=== PATIENT | male | born 1970 | race Hispanic/Latino ===

== ENCOUNTER 2020-02-12 10:29 | Emergency (ER) | payer BC ==
[~2020-02-12 10:29] MED LIST: SITA1TAB6 PO; VALS320T2 PO
[2020-02-12] MEDS ORDERED: LIDOCAINE HCL 2% VISCOUS 15 ML UDCUP ONE (12:13)
[2020-02-12] MEDS ORDERED: IBUPROFEN 100 MG/5 ML SUSP UDCUP ONE (12:13)
[2020-02-12] MEDS ORDERED: DEXAMETHASONE SOD PHOSPHATE 10MG/ML 1ML VIAL ONE (12:13)
== END 2020-02-12 12:22 | disposition home or self-care (01) ==
LOC: EDH 10:29
DX: J02.0 Streptococcal pharyngitis (principal); Z20.828 Contact with and (suspected) exposure to other viral communicable diseases
CPT/HCPCS: 87880; 96374; 99284; J1100; U0003

== ENCOUNTER 2025-03-04 13:07 | Inpatient (IN) | payer BC ==
[~2025-03-04] VITALS: Ht 167.6 cm; Wt 124.4 kg
--- NOTE | 2025-03-04 13:10 | NUR ---
PATIENT IN ROOM
--- NOTE | 2025-03-04 13:37 | ERN ---
ED Note History of Present Illness Stated Complaint: CHEST PAIN Chief Complaint: Chest Pain Time Seen by MD: 13:10 Dictation: IS A 54-YEAR-OLD MALE STATES HE WAS OUT WITH HIS SHOPPING AT MARKED DAYS WHEN HE HAD AN ONSET OF SUBSTERNAL PRESSURE THAT RADIATED TO HIS UPPER BACK THAT LASTED 5 MINUTES. HE STATES IT ONLY RESOLVED APPROXIMATELY5 MINUTES BEFORE ARRIVING TO THE HOSPITAL. HE STATES IN THE LAST SEVERAL WEEKS HE HAS HAD A TINGLING PAIN TO HIS LEFT CHEST, NONRADIATING. STATES HE DOES NOT HAVE A CARDIAC HISTORY HOWEVER HE IS OBESE, DIABETIC WITH HYPERTENSION HIGH CHOLESTEROL. HE DID NOT TALK ABOUT THIS CHEST TO HIS DOCTOR. DENIES ANY HI STORY OF STENTS, HEART CATHETERIZATION OR FORENSIC ACCOUNTANT'S. Allergies: Coded Allergies: No Known Drug Allergies (Verified Allergy, Unknown, 02/19/15) Home Meds Reported Medications Valsartan (Diovan) 320 Mg Tablet, 320 MG PO DAILY, TAB 02/19/15 Sitagliptin Phos/Metformin HCl (Janumet 50-1,000 mg Tablet) 1 Each Tablet, 1 EACH PO BID, TAB 02/19/15 Past Medical History Past Medical History: Diabetes-Type II, Hypertension Surgical History: Other RN Note Reviewed/Agreed w/PFSH: Yes Review of System Dictation CONSTITUTIONAL: NEGATIVE EXCEPT FOR HPI HEAD/FACE: NEGATIVE EXCEPT FOR HPI EENT: NEGATIVE EXCEPT FOR HPI RESPIRATORY: NEGATIVE EXCEPT FOR HPI CHEST PRESSURE THAT RADIATES TO DIFFUSE THORACIC BACK GASTROINTESTINAL/ABDOMINAL: NEGATIVE EXCEPT FOR HPI GENITOURINARY: NEGATIVE EXCEPT FOR HPI MUSCULOSKELETAL: NEGATIVE EXCEPT FOR HPI INTEGUMENTARY: NEGATIVE EXCEPT FOR HPI NEUROLOGICAL/PSYCH: NEGATIVE EXCEPT FOR HPI HEMATOLOGIC/LYMPHATIC: NEGATIVE EXCEPT FOR HPI ALL SYSTEMS NEGATIVE, EXCEPT NOTED ABOVE. 13 POINT REVIEW OF SYSTEMS ASSESSED AND ALL NEGATIVE EXCEPT FOR ABOVE. Initial Vital Sign VS Vital Signs Date Time Temp Pulse Resp B/P (MAP) Pulse Ox O2 Delivery O2 Flow Rate FiO2 03/04/25 13:08 98.4 56 20 138/93 98 Room Air 0 Physical Exam Dictation NORMAL EXAM VITAL SIGNS REVIEWED GENERAL APPEARANCE: ALERT, ORIENTED X 3, NO ACUTE DISTRESS, WELL DEVELOPED, NOURISHED. NO PAIN AT THIS TIME PATIENT IS OBESE HEAD AND FACE: NON-TRAUMATIC. EYES: PERRL, PINK CONJUNCTIVAS, EYELID NO TRAUMA, ANTERIOR CHAMBER WITH ARCUS SENILIS. EARS: PINNAS INTACT AND NO SIGNS OF TRAUMA OR ERYTHEMA EAR CANALS CLEAR AND NO DISCHARGE TM NO ERYTHEMA NOSE: NO DISCHARGE, NO BLEEDING. OROPHARYNX: MOUTH NORMAL, TONGUE PINK, PHARYNX CLEAR,NO ERYTHEMA, TONSILS NO EXUDATES, NO ABSCESSES NOTED, MUCOUS MEMBRANE MOIST NECK: SUPPLE, NON-TENDER, NO THYROMEGALY, NO MASSES, NO JVD, NO BRUITS BREAST:DEFERRED CHEST:NO TENDERNESS, NO CREPITUS, NO PARADOXICAL MOVEMENT, NO RETRACTIONS LUNGS:CLEAR, WELL-VENTILATED, SYMMETRIC, NO RALES, NO WHEEZING, NO RHONCHI, NO STRIDOR, GOOD BREATH SOUNDS BILATERALLY HEART: REGULAR RATE, REGULAR RHYTHM, NO MURMUR, NO GALLOPS VASCULAR: NO PERIPHERAL EDEMA, ABDOMEN: SOFT, POSITIVE BOWEL SOUNDS, NONDISTENDED, NO GUARDING, NONTENDER, NO REBOUND, NO MASSES NO HEPATOMEGALY, NO SPLENOMEGALY, NO DORAN'S SIGN, NO HERNIAS. RECTAL: DEFERRED GENITAL: DEFERRED NEUROLOGICAL: NORMAL SPEECH, MOTOR FUNCTION INTACT, SENSORY FUNCTION INTACT MUSCULOSKELETAL: NECK NONTENDER, FULL RANGE OF MOTION, BACK NONTENDER, FULL RANGE OF MOTION, EXTREMITIES: NONTENDER, FULL RANGE OF MOTION SKIN: COLOR PINK, DRY, NO TURGOR, NO RASH, NO LACERATIONS, NO ABRASIONS, NO CONTUSIONS. LYMPHATIC: DEFERRED Results (Laboratory/Radiology) Laboratory/Radiology Laboratory Tests Test 03/04/25 13:56 White Blood Count 5.6 K/uL (4.8-10.8) Red Blood Count 4.84 MIL/uL (4.50-6.20) Hemoglobin 13.4 g/dL (14.0-18.0) L Hematocrit 42.5 % (42-54) Mean Corpuscular Volume 87.8 fL (79-99) Mean Corpuscular Hemoglobin 27.7 pg (27.0-33.0) Mean Corpuscular Hemoglobin Concent 31.5 g/dL (32.0-36.0) L Red Cell Distribution Width 14.2 % (11.0-15.5) Platelet Count 234 K/uL (130-400) Mean Platelet Volume 9.3 fL (7.5-10.5) Immature Granulocyte % (Auto) 0.2 % (0-1) Neutrophils (%) (Auto) 58.5 % (40.0-77.0) Lymphocytes (%) (Auto) 31.1 % (21.0-51.0) Monocytes (%) (Auto) 7.9 % (3.0-13.0) Eosinophils (%) (Auto) 1.8 % (0.0-8.0) Basophils (%) (Auto) 0.5 % (0.0-5.0) Neutrophils # (Auto) 3.3 K/uL (1.8-7.7) Lymphocytes # (Auto) 1.7 K/uL (1.0-4.8) Monocytes # (Auto) 0.4 K/uL (0.1-1.0) Eosinophils # (Auto) 0.10 K/uL (0.00-0.70) Basophils # (Auto) 0.03 K/uL (0.00-0.20) Absolute Immature Granulocyte (auto 0.01 K/uL (0-1) Nucleated Red Blood Cells 0.0 % (0.0-0.19) Sodium Level 138 mmol/L (136-145) Potassium Level 4.6 mmol/L (3.5-5.1) Chloride Level 103 mmol/L (101-111) Carbon Dioxide Level 29 mmol/L (21-32) Blood Urea Nitrogen 10 mg/dL (7-18) Creatinine 0.8 mg/dL (0.5-1.3) Glomerular Filtration Rate Calc 106 mL/min (>90) Random Glucose 109 mg/dL (70-105) H Total Calcium 8.5 mg/dL (8.5-10.1) Magnesium Level 2.00 mg/dL (1.80-2.40) Troponin I High Sensitivity 6 ng/L (4-75) 1355/CHEST X-RAY NEGATIVE Labs Reviewed?: Yes EKG Comment: 1144/EKG SINUS RHYTHM/HEART RATE 57/LEFT ATRIAL ENLARGEMENT. PATIENT HAS NONSPECIFIC CHANGES IN THE ANTEROSEPTAL LEADS WITH A LEFT ANTERIOR FASCICULAR BLOCK NO PRIOR EKGS TO COMPARE IN REVIEW OF MEDICAL RECORDS ED Course ED Course Orders Procedure Category Date Status Time 12 Lead Ekg Tracing- EKG 03/04/25 Logged Technical 13:11 Cbc With Differential LAB 03/04/25 Complete 13:32 Chest 1vw RAD 03/04/25 Resulted 13:32 12 Lead Ekg Tracing- EKG 03/04/25 Logged Technical 13:32 Magnesium LAB 03/04/25 Complete 13:32 Troponin I High LAB 03/04/25 Complete Sensitivity 13:32 Aspirin 325mg Tab PHA 03/04/25 Complete (Aspirin 325mg Tab) 14:00 Urinalysis Profile LAB 03/04/25 Logged 13:32 Basic Metabolic Panel LAB 03/04/25 Complete 13:32 Current Medications Medications (Trade) Dose Ordered Sig/Bhargav Route PRN Reason Start Time Stop Time Status Last Admin Dose Admin Aspirin (Aspirin 325mg Tab) 325 mg ONCE ONCE PO 03/04/25 14:00 03/04/25 14:01 DC 03/04/25 13:51 Vital Signs Date Time Temp Pulse Resp B/P (MAP) Pulse Ox O2 Delivery O2 Flow Rate FiO2 03/04/25 13:08 98.4 56 20 138/93 98 Room Air 0 1430/SPOKE TO PATIENT IN HIS AT LENGTH. HE STATES HE CONTINUES TO BE PAIN- FREE. HE ALSO STATED HE HAD A HEART CATHETERIZATION DONE AT [facility] YEARS AGO AND WAS TOLD BY THE FORENSIC ACCOUNTANT'S HE HAD A PERFECT HEART. HE HAD NOT SEEN HIS DOCTOR OVER THE LAST SEVERAL WEEKS WHEN HE WAS HAVING THESE PAINS TO HIS LEFT CHEST. HE AGREES TO BE ADMITTED FOR SERIAL CARDIAC ENZYMES AND EKG.1440/ 1440/SPOKE WITH . REVIEWED EKG LABS CHEST X-RAY AND PATIENT HISTORY OF PRIOR HEART CATHETERIZATION NO FORENSIC ACCOUNTANT'S. HE IS AWARE HE HAS HAD CHRONIC INTERMITTENT CHEST PAIN THAT HE DID NOT REPORT TO HIS DOCTOR. ABNORMAL EKG HEART Score Response (Comments) Value EKG: Repolarization changes 1 Age: 45-65yrs (+1) 1 Risk Factors: 1-2 risk factors (+1) 1 Initial Troponin: Normal limit (0) 0 Total 3 Medical Decision Making MDM MDM: DIFFERENTIAL DIAGNOSIS: ACS/AMI/ACUTE CORONARY SYNDROME/ELECTROLYTE IMBALANCE/DEHYDRATION/PNEUMONIA/BRONCHITIS RATIONALE: TESTS CONSIDERED AND ORDERED SECONDARY TO SHARED DECISION MAKING INCLUDE: LABS, ECG AND RADIOLOGY PREVIOUS OUTSIDE RECORDS REVIEWED: OLD ER VISITS. RISK OF COMPLICATION AND/OR MORBIDITY OR MORTALITY OF PATIENT MANAGEMENT: NONE MEDICATIONS-PER MEDICATION RECONCILIATION NEED FOR HOSPITALIZATION: PATIENT DOES MEET CRITERIA FOR HOSPITALIZATION. PATIENT WILL NEED TO BE ADMITTED FOR SERIAL CARDIAC ENZYMES, EKG CARDIOLOGY CONSULTATION MANAGEMENT HAS METABOLIC SYNDROME NEED FOR EMERGENCY MAJOR/MINOR SURGERY: NO THERE ARE NO SOCIAL CONCERNS WITH THIS PATIENT. PRESCRIPTION DRUG MANAGEMENT PRESCRIPTIONS WILL INCLUDE SYMPTOMATIC CARE PATIENT'S PRIOR EXTERNAL MEDICAL RECORDS FROM OTHER ER VISITS WERE REVIEWED BY ME INDICATED. PRIOR TESTING AND RESULTS FROM PREVIOUS VISITS WERE REVIEWED. PRIOR TESTS WERE TAKEN INTO ACCOUNT WITH MEDICAL DECISION MAKING AND RESOURCE UTILIZATION, INDEPENDENT HISTORIAN/HISTORIANS WERE USED TO OBTAIN COMPLETE MEDICAL HISTORY. I INDEPENDENTLY INTERPRETED THE TEST THAT WERE PERFORMED, RESULTS WERE REVIEWED BY ME AND CONSIDERED FINDINGS ON RADIOLOGY IF ORDERED. MEDICAL MANAGEMENT AND EXAMINATION INTERPRETATION DISCUSSIONS WERE HAD BY ME WITH OTHER QUALIFIED HEALTHCARE PROFESSIONALS INDICATED FOR THE PATIENT'S CARE. DX & DISP Disposition: Inpatient Decision to Admit Time: 14:31 Departure Impression: Primary Impression: Chest pain with high risk of acute coronary syndrome Additional Impressions: Abnormal EKG, Diabetes mellitus with hyperglycemia, Obesity Condition: Stable Referrals: RAE MANLEY (PCP) I have reviewed the case, and I agree with, Diagnosis and Plan WESTON HERRERA BUSINESS RISK CONSULTANT Mar 04, 2025 13:37
[2025-03-04] MEDS: ASPIRIN 325MG TAB PO ONE (13:51)
[2025-03-04 14:03] LABS: IMMATURE GRANULOCYTE ABSOLUTE 0.01 K/uL (0-1); NUCLEATED RED BLOOD CELLS 0.0 % (0.0-0.19); PLATELET COUNT (AUTO) 234 K/uL (130-400); RED BLOOD CELL COUNT(AUTO) 4.84 MIL/uL (4.50-6.20); RED CELL DISTRIBUTION WIDTH 14.2 % (11.0-15.5); WHITE BLOOD COUNT (AUTO) 5.6 K/uL (4.8-10.8)
[2025-03-04 14:12] LABS: CREATININE 0.8 mg/dL (0.5-1.3); GLOMERULAR FILTR. RATE CALC 106.0 mL/min (>90); GLUCOSE,RANDOM 109.0 mg/dL (70-105); SODIUM SERUM 138.0 mmol/L (136-145); UREA NITROGEN, BLOOD 10.0 mg/dL (7-18)
--- NOTE | 2025-03-04 14:48 | HMCIMG ---
EXAM: CR Chest, 1 View. CLINICAL HISTORY: CHEST PAIN COMPARISON: None provided. FINDINGS: LUNGS: There is no mass, infiltrate, or acute pulmonary abnormality. PLEURAL SPACES: No pleural effusion or pneumothorax. MEDIASTINUM: Cardiac size and mediastinal contours within normal limits. BONES: No acute osseous abnormality. IMPRESSION: No acute cardiopulmonary pathology is evident. /[place]
--- NOTE | 2025-03-04 15:18 | HP ---
[facility] HISTORY AND PHYSICAL Date of Service: Mar 04, 2025 Time of Service: 15:18 HISTORY OF PRESENT ILLNESS: DATE OF SERVICE: 03/04/2024 54-year-old male with past medical history of diabetes mellitus type 2, hypertension who presented to the hospital secondary to chest pain. The patient states he had a episode of chest pain while he was shopping in [place]. He states the pain lasted for at least 45 minutes. The pain was located in the midsternal area and would radiate towards his left chest. He denied any diaphoresis associated with the pain but felt nauseated. He also felt tingling sensation in his upper extremity and lower extremity. He currently denies any active paresthesias, upper or lower extremity weakness. He was able to ambulate. 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 He also had another episode of chest pain few weeks ago. He had seen a dye automation operator 12 years ago and had a stress test with a angiogram done which per patient was negative. He has not followed up with anyone afterwards. Denied any fever, chills, abdominal pain, dysuria. Labs were notable for white count of 5.6, hemoglobin was 13.4, platelet count was 234 K, sodium was 138, potassium was 4.6, chloride was 103, creatinine was 0.8, blood glucose was 109, troponin was negative x1. X-ray showed no acute infiltrates. REVIEW OF SYSTEMS CONSTITUTIONAL: Denies fevers, chills, or night sweats. No unintentional weight loss reported. NEUROLOGICAL: Denies headache, amaurosis fugax, motor weakness, sensory deficit, vertigo/spinning sensation, gait abnormalities, or tremors. ENT: No hearing loss, otalgia, otorrhea, rhinitis, rhinorrhea, hoarseness, or sore throat. CARDIOVASCULAR: Positive for chest pain. Denied any orthopnea, PND. PULMONARY: Denies any shortness of breath, cough, phlegm/sputum, hemoptysis, pleuritic chest pain. GASTROINTESTINAL: Denies any type of dysphagia to either liquids or solids. Denies nausea, vomiting, pyrosis, early satiety, abdominal pain, diarrhea, constipation, or changes in stool consistency or caliber. Denies coffee-ground emesis, hematemesis, hematochezia, or melanotic stools. GENITOURINARY: Denies frequency, urgency, nocturia, hematuria or incontinence (Storage/Irritative symptoms.) Low urinary stream, straining to void, urinary intermittency or hesitancy, splitting of the voiding stream, terminal dribbling. ENDOCRINOLOGIC: Denies polyuria, polydipsia, polyphagia or heat/cold intolerances. HEMATOLOGIC: Denies thrombophilia/previous clots, or coagulopathy/bleeding disorders. ONCOLOGIC: Denies personal history of malignancy. DERMATOLOGIC: Denies rashes or pruritus. PSYCHIATRIC: Denies any suicidal or homicidal ideation. Denies hallucinations. PAST MEDICAL HISTORY: Diabetes mellitus type 2, hypertension PAST SURGICAL HISTORY: History of gastric surgery PAST SOCIAL HISTORY: Denied any smoking, alcohol, drug use FAMILY HISTORY: Denied any pertinent family history Coded Allergies: No Known Drug Allergies (Verified Allergy, Unknown, 02/19/15) PHYSICAL EXAM GENERAL APPEARANCE: The patient is awake, alert, and oriented, in no acute cardiopulmonary distress. NEUROLOGICAL: Cranial nerves II-XII grossly intact. Motor is 5/5 in bilateral upper and lower extremities proximal to distal. No sensory deficits. HEENT: Face is symmetric. Pupils are equal and reactive. Extraocular movements are intact. NECK: Supple. No JVD. No thyromegaly. No submental, submandibular, pre- /postauricular, occipital or supraclavicular lymphadenopathy. CHEST: Normal chest expansion. No Telemetry. LUNGS: Absence of any rales, rhonchi or any wheezing. CARDIOVASCULAR: Regular. S1 and S2 normal. No appreciable rubs, murmurs or gallops. ABDOMEN: Soft, nontender, and nondistended. There is no rebound, voluntary guarding, or rigidity. : Deferred. No Medley. EXTREMITIES: Non-edematous and not cyanotic. No clubbing. Good capillary refill. SKIN: No skin breakdown. Vital Sign (Last 24 Hours) 03/04/25 13:08 Temp 98.4 Pulse 56 Resp 20 B/P (MAP) 138/93 Pulse Ox 98 O2 Delivery Room Air O2 Flow Rate 0 LABS: Laboratory: Test 03/04/25 13:56 Range/Units White Blood Count 5.6 4.8-10.8 K/uL Red Blood Count 4.84 4.50-6.20 MIL/uL Hemoglobin 13.4 L 14.0-18.0 g/dL Hematocrit 42.5 42-54 % Mean Corpuscular Volume 87.8 79-99 fL Mean Corpuscular Hemoglobin 27.7 27.0-33.0 pg Mean Corpuscular Hemoglobin Concent 31.5 L 32.0-36.0 g/dL Red Cell Distribution Width 14.2 11.0-15.5 % Platelet Count 234 130-400 K/uL Mean Platelet Volume 9.3 7.5-10.5 fL Immature Granulocyte % (Auto) 0.2 0-1 % Neutrophils (%) (Auto) 58.5 40.0-77.0 % Lymphocytes (%) (Auto) 31.1 21.0-51.0 % Monocytes (%) (Auto) 7.9 3.0-13.0 % Eosinophils (%) (Auto) 1.8 0.0-8.0 % Basophils (%) (Auto) 0.5 0.0-5.0 % Neutrophils # (Auto) 3.3 1.8-7.7 K/uL Lymphocytes # (Auto) 1.7 1.0-4.8 K/uL Monocytes # (Auto) 0.4 0.1-1.0 K/uL Eosinophils # (Auto) 0.10 0.00-0.70 K/uL Basophils # (Auto) 0.03 0.00-0.20 K/uL Absolute Immature Granulocyte (auto 0.01 0-1 K/uL Nucleated Red Blood Cells 0.0 0.0-0.19 % Sodium Level 138 136-145 mmol/L Potassium Level 4.6 3.5-5.1 mmol/L Chloride Level 103 101-111 mmol/L Carbon Dioxide Level 29 21-32 mmol/L Blood Urea Nitrogen 10 7-18 mg/dL Creatinine 0.8 0.5-1.3 mg/dL Glomerular Filtration Rate Calc 106 >90 mL/min Random Glucose 109 H 70-105 mg/dL Total Calcium 8.5 8.5-10.1 mg/dL Magnesium Level 2.00 1.80-2.40 mg/dL Troponin I High Sensitivity 6 4-75 ng/L DIAGNOSTICS / RADIOLOGY: Chest x-ray showed no acute infiltrates ASSESSMENT: Chest pain ACS rule out Hypertension Diabetes mellitus type 2 Obesity BMI 42.8 PLAN: -patient to be admitted to medical-surgical unit with telemetry -in reference to chest pain. We will trend troponins q.6 hours to rule out ACS. Obtain echocardiogram. We will request consultation with Cardiology knee to patient's risk factors -obtain home medications which will be reconciled once available -check TSH, hemoglobin A1c -further orders per hospitalization course. Advanced Care Planning Which of the following were discussed: Hospice care: Yes __ No _x_ Therapeutic options: Yes __ No __ Advance directives: Yes __ No __ Other discussions: Discussed with who?: patient (Patient, family or surrogates) Voluntary nature of this service was explained to the patient? Yes _x_ No __ Amount of time spent: 25 minutes DELONTE Storey MD, MD Mar 04, 2025 15:18
--- NOTE | 2025-03-04 15:22 | NUR ---
cardiology consult: patient report given to dr young
[2025-03-04] MEDS ORDERED: MAGNESIUM 2GM PREMIX 50ML 50 ML IV PRN (15:30)
[2025-03-04] MEDS ORDERED: PoTASSium chl 10% ELIXIR 20MEQ 20 MEQ/15 ML UDCUP PO PRN (15:30)
[2025-03-04] MEDS ORDERED: PoTASSium chloRIDE 20MEQ ER 20 MEQ ERTAB PO PRN (15:30)
[2025-03-04 16:28] LABS: APPEARANCE,URINE CLEAR (CLEAR); GLUCOSE, URINE (UA) NEGATIVE (NEGATIVE); LEUKOCYTE ESTERASE ,URINE NEGATIVE Leu/uL (NEGATIVE); NITRATE,URINE NEGATIVE (NEGATIVE); OCCULT BLOOD,URINE NEGATIVE (NEGATIVE)
[2025-03-04 16:30] VITALS: O2SAT 99
[2025-03-04 16:30] LABS: ADD UA MICROSCOPIC NO
[2025-03-04 16:35] VITALS: BP 155/106; PULSE 51; RESP 16; TEMP 97.5
--- NOTE | 2025-03-04 19:01 | CONS ---
Cardiology Consult Note Cardiology Attending: Stephon Aguiar Consulting Physician: Hospitalist Date of Service: 03/04/25 Reason for Consult: Chest Pain HPI: This is a 54-year-old male with past medical history of HTN, DM2, and nonobstructive CAD ([facility]/coronary angiogram done in 2014) who presents with chest pain. The symptoms began this morning (10:30 a.m.) while the patient was walking with his family. The pain was described as dull in quality, 7/10 in intensity, and nonradiating. The symptoms were not exacerbated by anything, lasted approximately 40 minutes, and resolve without any specific treatment. Associated symptoms included diaphoresis. Pertinent negatives include headache, dizziness, syncope, palpitations, shortness of breath, dyspnea on exertion, PND, orthopnea, abdominal pain, nausea, vomiting, or lower extremity swelling/edema. The symptoms prompted the patient to come to the hospital for further evaluation and treatment. PMH: Listed above PSH: None FH: Significant for CAD, HTN, DMII, and CVA. SH: Denies alcohol, tobacco, or illicit drug use. Medications: Metformin, losartan Allergies: Coded Allergies: No Known Drug Allergies (Verified Allergy, Unknown, 02/19/15) Review of systems: General: Denies fever or chills HEENT: Denies changes in vision, earache or sore throat Neck: Denies pain or stiffness Cardio: As per the HPI Pulm: Denies SOB, coughing or wheezing GI: Denies abdominal pain, nausea, vomiting, diarrhea, or constipation. MSK: Denies muscle or back pain. Heme: Denies anemia, easy bruising, or bleeding. Neuro: Denies headache, dizziness, or syncope. Psych: Denies anxiety, depression, or suicide ideations. Physical Exam: Vital Signs Date Time Temp Pulse Resp B/P (MAP) Pulse Ox O2 Delivery O2 Flow Rate FiO2 03/04/25 16:35 97.5 51 16 155/106 95 Room Air 21 03/04/25 16:30 0 General: Alert and oriented x 3. NAD HEENT: NC/AT. Oral mucosa is moist. Neck: No masses, JVD, or carotid bruits Lungs: NRD. SCM. B/L CTA. No wheezing, rales or rhonchi. Cardio: Rate @ 77bpm. Normal S1 and S2. +S4. PMI was not displaced. Abdomen: Soft. NT. ND. Normal active bowel sounds x 4 quadrants. Extremities: No edema, clubbing or cyanosis. +2 pulses noted throughout. Neuro: CN II-XII were grossly intact. No focal deficits. Labs: Laboratory Tests Test 03/04/25 13:56 03/04/25 16:13 03/04/25 16:21 Range/Units White Blood Count 5.6 4.8-10.8 K/uL Red Blood Count 4.84 4.50-6.20 MIL/uL Hemoglobin 13.4 L 14.0-18.0 g/dL Hematocrit 42.5 42-54 % Mean Corpuscular Volume 87.8 79-99 fL Mean Corpuscular Hemoglobin 27.7 27.0-33.0 pg Mean Corpuscular Hemoglobin Concent 31.5 L 32.0-36.0 g/dL Red Cell Distribution Width 14.2 11.0-15.5 % Platelet Count 234 130-400 K/uL Mean Platelet Volume 9.3 7.5-10.5 fL Immature Granulocyte % (Auto) 0.2 0-1 % Neutrophils (%) (Auto) 58.5 40.0-77.0 % Lymphocytes (%) (Auto) 31.1 21.0-51.0 % Monocytes (%) (Auto) 7.9 3.0-13.0 % Eosinophils (%) (Auto) 1.8 0.0-8.0 % Basophils (%) (Auto) 0.5 0.0-5.0 % Neutrophils # (Auto) 3.3 1.8-7.7 K/uL Lymphocytes # (Auto) 1.7 1.0-4.8 K/uL Monocytes # (Auto) 0.4 0.1-1.0 K/uL Eosinophils # (Auto) 0.10 0.00-0.70 K/uL Basophils # (Auto) 0.03 0.00-0.20 K/uL Absolute Immature Granulocyte (auto 0.01 0-1 K/uL Nucleated Red Blood Cells 0.0 0.0-0.19 % Sodium Level 138 136-145 mmol/L Potassium Level 4.6 3.5-5.1 mmol/L Chloride Level 103 101-111 mmol/L Carbon Dioxide Level 29 21-32 mmol/L Blood Urea Nitrogen 10 7-18 mg/dL Creatinine 0.8 0.5-1.3 mg/dL Glomerular Filtration Rate Calc 106 >90 mL/min Random Glucose 109 H 70-105 mg/dL Hemoglobin A1c 7.2 H 4.0-6.0 % Estimated Average Glucose (eAG) 160 H 70-126 mg/dL Total Calcium 8.5 8.5-10.1 mg/dL Magnesium Level 2.00 1.80-2.40 mg/dL Troponin I High Sensitivity 6 6 4-75 ng/L Thyroid Stimulating Hormone (TSH) 1.44 0.36-3.74 uIU/mL Urine Color LIGHT-YELLOW YELLOW Urine Appearance CLEAR CLEAR Urine pH 7.0 5.0-8.0 Urine Specific [place] 1.010 1.001-1.031 Urine Protein NEGATIVE NEGATIVE mg/dL Urine Glucose (UA) NEGATIVE NEGATIVE mg/dL Urine Ketones NEGATIVE NEGATIVE mg/dL Urine Occult Blood NEGATIVE NEGATIVE Urine Nitrate NEGATIVE NEGATIVE Urine Bilirubin NEGATIVE NEGATIVE mg/dL Urine Urobilinogen 0.2 0.2-1.0 mg/dL Urine Leukocyte Esterase NEGATIVE NEGATIVE Denis/uL ECG 03/04/2025: Sinus rhythm. Poor R-wave progression seen in the anterior leads. Possible Q-wave seen in the inferior leads. Heart rate descending beats per minute. Assessment: Chest pain HTN DM2 Plan: 1. Chest pain -stable -ECG 03/04/2025: Sinus rhythm. Poor R-wave progression seen in the anterior leads. Possible Q-wave seen in the inferior leads. Heart rate descending beats per minute. -laboratory data- high sensitivity troponin I: 6 > 6 -the patient presents after experiencing a single episode of chest pain. The pain developed while he was walking with his family. The pain was described as dull in quality, 7/10 in intensity and nonradiating. The symptoms were not exacerbated by anything, lasted 40 minutes, and resolve without any specific treatment. Associated symptoms include diaphoresis. -the patient symptoms, in combination with multiple cardiac risk factors and the above-mentioned ECG are concerning for underlying CAD. In order to further e valuate this issue we will refer the patient for Lexiscan stress test and an echocardiogram. We will await the results of the studies before recommending further treatment. In the meantime the patient will be started on aspirin 81 mg daily and atorvastatin 20 mg qhs. 2. HTN -management as with the hospitalist service. Thank you for this interesting consult and allowing us to participate in the care of your patient. STEPHON AGUIAR MD Mar 04, 2025 19:01
[2025-03-04 19:20] VITALS: O2SAT 96
[2025-03-04] MEDS: FAMOTIDINE 20MG VIAL IV SCH (19:48)
[2025-03-04 20:00] VITALS: BP 121/67; PULSE 71; RESP 18; TEMP 97.8
[2025-03-05] VITALS (8 sets, daily range): BP systolic 122–154; BP diastolic 66–109; PULSE 56–99; RESP 16–20; TEMP 97.6–98.1; O2SAT 93–96
--- NOTE | 2025-03-05 03:10 | NUR ---
nurse note patient alert and oriented times 4. plan of care discussed with him and his . they verbalized understanding. patient has no pain tonight. he has slept about 6 hours tonight. call light within reach, bed alarm on, 2 side rails up. will continue to monitor patient.
[2025-03-05 06:55] LABS: IMMATURE GRANULOCYTE ABSOLUTE 0.01 K/uL (0-1); NUCLEATED RED BLOOD CELLS 0.0 % (0.0-0.19); PLATELET COUNT (AUTO) 232 K/uL (130-400); RED BLOOD CELL COUNT(AUTO) 4.70 MIL/uL (4.50-6.20); RED CELL DISTRIBUTION WIDTH 14.3 % (11.0-15.5); WHITE BLOOD COUNT (AUTO) 5.3 K/uL (4.8-10.8)
[2025-03-05 07:19] LABS: CREATININE 0.8 mg/dL (0.5-1.3); GLOMERULAR FILTR. RATE CALC 106.0 mL/min (>90); GLUCOSE,RANDOM 107.0 mg/dL (70-105); SODIUM SERUM 138.0 mmol/L (136-145); UREA NITROGEN, BLOOD 13.0 mg/dL (7-18)
[2025-03-05] MEDS: ASPIRIN 81MG CHEW TAB PO SCH (08:32)
[2025-03-05] MEDS: LOSARTAN/HYDROCHLOROTHIAZIDE 50-12.5MG TABLET PO SCH (08:32)
[2025-03-05] MEDS: ENOXAPARIN SODIUM 40 MG/0.4 ML SYRINGE SQ SCH (09:10)
[2025-03-05] MEDS: REGADENOSON 0.4 MG/5 ML PF SYG IVP ONE (11:55)
--- NOTE | 2025-03-05 13:23 | PN ---
[facility] C[facility] PROGRESS NOTE Date Patient Seen: Mar 05, 2025 Time of Visit: 13:21 Interval History: This is a 54-year-old male with past medical history of HTN, DM2, and nonobstructive CAD ([facility]/coronary angiogram done in 2014) who presents with chest pain. The symptoms began morning while the patient was walking with his family. He has ruled out for acute myocardial ischemia and is currently undergoing a Lexiscan Cardiolite stress test. A 2D echocardiogram has also been requested. Physical Examination: Patient is currently in stress lab Laboratory: Hematology Labs: Test 03/05/25 05:53 Range/Units White Blood Count 5.3 4.8-10.8 K/uL Red Blood Count 4.70 4.50-6.20 MIL/uL Hemoglobin 13.1 L 14.0-18.0 g/dL Hematocrit 40.6 L 42-54 % Mean Corpuscular Volume 86.4 79-99 fL Mean Corpuscular Hemoglobin 27.9 27.0-33.0 pg Mean Corpuscular Hemoglobin Concent 32.3 32.0-36.0 g/dL Red Cell Distribution Width 14.3 11.0-15.5 % Platelet Count 232 130-400 K/uL Mean Platelet Volume 9.8 7.5-10.5 fL Immature Granulocyte % (Auto) 0.2 0-1 % Neutrophils (%) (Auto) 51.3 40.0-77.0 % Lymphocytes (%) (Auto) 36.4 21.0-51.0 % Monocytes (%) (Auto) 9.1 3.0-13.0 % Eosinophils (%) (Auto) 2.6 0.0-8.0 % Basophils (%) (Auto) 0.4 0.0-5.0 % Neutrophils # (Auto) 2.7 1.8-7.7 K/uL Lymphocytes # (Auto) 1.9 1.0-4.8 K/uL Monocytes # (Auto) 0.5 0.1-1.0 K/uL Eosinophils # (Auto) 0.14 0.00-0.70 K/uL Basophils # (Auto) 0.02 0.00-0.20 K/uL Absolute Immature Granulocyte (auto 0.01 0-1 K/uL Nucleated Red Blood Cells 0.0 0.0-0.19 % Chemistry Labs: Test 03/05/25 05:53 03/05/25 05:45 03/04/25 23:32 03/04/25 13:56 Range/Units Sodium Level 138 136-145 mmol/L Potassium Level 4.5 3.5-5.1 mmol/L Chloride Level 104 101-111 mmol/L Carbon Dioxide Level 26 21-32 mmol/L Blood Urea Nitrogen 13 7-18 mg/dL Creatinine 0.8 0.5-1.3 mg/dL Glomerular Filtration Rate Calc 106 >90 mL/min Random Glucose 107 H 70-105 mg/dL Total Calcium 8.4 L 8.5-10.1 mg/dL Vitamin B12 Level 349 193-986 pg/mL Whole Blood Glucose 123 H 70-110 MG/DL Troponin I High Sensitivity 6 4-75 ng/L Hemoglobin A1c 7.2 H 4.0-6.0 % Estimated Average Glucose (eAG) 160 H 70-126 mg/dL Magnesium Level 2.00 1.80-2.40 mg/dL Thyroid Stimulating Hormone (TSH) 1.44 0.36-3.74 uIU/mL Diagnostics / Radiology: Lexiscan Cardiolite stress test and 2D echocardiogram are pending Impression and Plan: Chest pain: History of nonobstructive coronary artery disease by prior cardiac catheterization 2015: -EKG on admission demonstrated poor R-wave progression in the anterior leads and possible Q waves in the inferior leads -continue aspirin therapy continue statin therapy -await results of the Lexiscan Cardiolite stress test and 2D echocardiogram Hypertension Type 2 diabetes mellitus PHYSICIAN ATTESTATION OF PHYSICIAN INTERN PRODUCT MARKETING MANAGER DOCUMENTATION: I attest that I was physically present for the [place] portions of the service and evaluated the patient with the Physician Supervisor Net Making, and I reviewed and discussed the case with the Physician Supervisor Net Making and made modifications to the Physician Supervisor Net Making's findings and plans of care as documented above FER MCWILLIAMS Mar 05, 2025 13:23 ANALILIA FLOWERS MD Mar 05, 2025 15:28
--- NOTE | 2025-03-05 15:02 | EKG ---
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
--- NOTE | 2025-03-05 15:08 | NUR ---
INITIAL/DCP HOME Met w pt and spouse this afternoon to discuss dcp. EC is spouse Cynthia Mantilla [phone]. Preferred pharmacy is [facility] on [address] [place] [address]. Prior to admission pt was living at home w her spouse. He is independent w ambulation and ADLs. 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 Pt does not own any DME or receive services. Discharge goal is to return home.
--- NOTE | 2025-03-05 15:58 | PN ---
[facility] PROGRESS NOTE Date of Service: Mar 05, 2025 Time of Service: 15:54 SUBJECTIVE: [Patient reports that he went for his scheduled Lexiscan Cardiolite stress test earlier today. He denies any new chest pain, shortness of breath, palpitations, dizziness, or syncope since the last assessment. He remains hemodynamically stable and has not experienced any further episodes of diaphoresis, nausea, or paresthesias. No new complaints at this time. ] REVIEW OF SYSTEMS CONSTITUTIONAL: Denies fevers, chills, or night sweats. No unintentional weight loss reported. NEUROLOGICAL: Denies headache, amaurosis fugax, motor weakness, sensory deficit, vertigo/spinning sensation, gait abnormalities, or tremors. ENT: No hearing loss, otalgia, otorrhea, rhinitis, rhinorrhea, hoarseness, or sore throat. CARDIOVASCULAR: Positive for chest pain. Denied any orthopnea, PND. PULMONARY: Denies any shortness of breath, cough, phlegm/sputum, hemoptysis, pleuritic chest pain. GASTROINTESTINAL: Denies any type of dysphagia to either liquids or solids. Denies nausea, vomiting, pyrosis, early satiety, abdominal pain, diarrhea, constipation, or changes in stool consistency or caliber. Denies coffee-ground emesis, hematemesis, hematochezia, or melanotic stools. GENITOURINARY: Denies frequency, urgency, nocturia, hematuria or incontinence (Storage/Irritative symptoms.) Low urinary stream, straining to void, urinary intermittency or hesitancy, splitting of the voiding stream, terminal dribbling. ENDOCRINOLOGIC: Denies polyuria, polydipsia, polyphagia or heat/cold intolerances. HEMATOLOGIC: Denies thrombophilia/previous clots, or coagulopathy/bleeding disorders. ONCOLOGIC: Denies personal history of malignancy. DERMATOLOGIC: Denies rashes or pruritus. PSYCHIATRIC: Denies any suicidal or homicidal ideation. Denies hallucinations. PHYSICAL EXAM GENERAL APPEARANCE: The patient is awake, alert, and oriented, in no acute cardiopulmonary distress. NEUROLOGICAL: Cranial nerves II-XII grossly intact. Motor is 5/5 in bilateral upper and lower extremities proximal to distal. No sensory deficits. HEENT: Face is symmetric. Pupils are equal and reactive. Extraocular movements are intact. NECK: Supple. No JVD. No thyromegaly. No submental, submandibular, pre- /postauricular, occipital or supraclavicular lymphadenopathy. CHEST: Normal chest expansion. No Telemetry. LUNGS: Absence of any rales, rhonchi or any wheezing. CARDIOVASCULAR: Regular. S1 and S2 normal. No appreciable rubs, murmurs or gallops. ABDOMEN: Soft, nontender, and nondistended. There is no rebound, voluntary guarding, or rigidity. : Deferred. No Medley. EXTREMITIES: Non-edematous and not cyanotic. No clubbing. Good capillary refill. SKIN: No skin breakdown. Vital Signs (last 8hr) Date Time Temp Pulse Resp B/P (MAP) Pulse Ox O2 Delivery O2 Flow Rate FiO2 03/05/25 10:06 96 Room Air* 0 21 03/05/25 08:00 97.5 60 16 146/85 95 Room Air 21 LABS: Laboratory: Test 03/05/25 14:19 03/05/25 05:53 03/04/25 23:32 03/04/25 16:13 Range/Units Whole Blood Glucose 179 H 70-110 MG/DL White Blood Count 5.3 4.8-10.8 K/uL Red Blood Count 4.70 4.50-6.20 MIL/uL Hemoglobin 13.1 L 14.0-18.0 g/dL Hematocrit 40.6 L 42-54 % Mean Corpuscular Volume 86.4 79-99 fL Mean Corpuscular Hemoglobin 27.9 27.0-33.0 pg Mean Corpuscular Hemoglobin Concent 32.3 32.0-36.0 g/dL Red Cell Distribution Width 14.3 11.0-15.5 % Platelet Count 232 130-400 K/uL Mean Platelet Volume 9.8 7.5-10.5 fL Immature Granulocyte % (Auto) 0.2 0-1 % Neutrophils (%) (Auto) 51.3 40.0-77.0 % Lymphocytes (%) (Auto) 36.4 21.0-51.0 % Monocytes (%) (Auto) 9.1 3.0-13.0 % Eosinophils (%) (Auto) 2.6 0.0-8.0 % Basophils (%) (Auto) 0.4 0.0-5.0 % Neutrophils # (Auto) 2.7 1.8-7.7 K/uL Lymphocytes # (Auto) 1.9 1.0-4.8 K/uL Monocytes # (Auto) 0.5 0.1-1.0 K/uL Eosinophils # (Auto) 0.14 0.00-0.70 K/uL Basophils # (Auto) 0.02 0.00-0.20 K/uL Absolute Immature Granulocyte (auto 0.01 0-1 K/uL Nucleated Red Blood Cells 0.0 0.0-0.19 % Sodium Level 138 136-145 mmol/L Potassium Level 4.5 3.5-5.1 mmol/L Chloride Level 104 101-111 mmol/L Carbon Dioxide Level 26 21-32 mmol/L Blood Urea Nitrogen 13 7-18 mg/dL Creatinine 0.8 0.5-1.3 mg/dL Glomerular Filtration Rate Calc 106 >90 mL/min Random Glucose 107 H 70-105 mg/dL Total Calcium 8.4 L 8.5-10.1 mg/dL Vitamin B12 Level 349 193-986 pg/mL Troponin I High Sensitivity 6 4-75 ng/L Urine Color LIGHT-YELLOW YELLOW Urine Appearance CLEAR CLEAR Urine pH 7.0 5.0-8.0 Urine Specific [place] 1.010 1.001-1.031 Urine Protein NEGATIVE NEGATIVE mg/dL Urine Glucose (UA) NEGATIVE NEGATIVE mg/dL Urine Ketones NEGATIVE NEGATIVE mg/dL Urine Occult Blood NEGATIVE NEGATIVE Urine Nitrate NEGATIVE NEGATIVE Urine Bilirubin NEGATIVE NEGATIVE mg/dL Urine Urobilinogen 0.2 0.2-1.0 mg/dL Urine Leukocyte Esterase NEGATIVE NEGATIVE Denis/uL Test 03/04/25 13:56 Range/Units Hemoglobin A1c 7.2 H 4.0-6.0 % Estimated Average Glucose (eAG) 160 H 70-126 mg/dL Magnesium Level 2.00 1.80-2.40 mg/dL Thyroid Stimulating Hormone (TSH) 1.44 0.36-3.74 uIU/mL Current Medications Medications (Trade) Dose Ordered Sig/Bhargav Route PRN Reason Start Time Stop Time Status Last Admin Dose Admin Acetaminophen (TYLenol 500MG TAB) 500 mg Q6H PRN PO MILD PAIN (1-3) 03/04/25 15:30 04/03/25 15:29 Aspirin (Aspirin 81mg Chew Tab) 81 mg DAILY PO 03/05/25 09:00 04/04/25 08:59 Atorvastatin Calcium (LIPItor 20MG) 20 mg HS PO 03/05/25 21:00 04/04/25 20:59 Enoxaparin Sodium (Lovenox) 40 mg DAILY SQ 03/05/25 09:00 04/04/25 08:59 03/05/25 09:10 40 MG Famotidine (Pepcid 20mg Vial) 20 mg BID IV 03/04/25 21:00 04/03/25 20:59 03/05/25 09:10 20 MG HCTZ/Losartan Potassium (Hyzaar 50-12.5 Tablet) 1 tab DAILY PO 03/05/25 09:00 04/04/25 08:59 Hydralazine HCl (APRESOLine 20MG INJ) 10 mg Q6H PRN IV ADMINISTER FOR SBP > 180 03/04/25 15:30 04/03/25 15:29 Insulin Human Regular (humuLIN R 100 UNIT/ML 3ML) INSULIN SLIDING SCAL... ACHS SQ 03/04/25 16:30 04/03/25 16:29 03/04/25 21:19 3 UNIT Magnesium Sulfate 50 ml @ 0 mls/hr PROTOCOL PRN IV hypomagnesemia 03/04/25 15:30 04/03/25 15:29 Potassium Chloride 100 ml @ 100 mls/hr AD PRN IV POTASSIUM PROTOCOL 03/04/25 15:30 04/03/25 15:29 Potassium Chloride (K-Dur/Klor-Con 20meq) 20 meq AD PRN PO POTASSIUM PROTOCOL 03/04/25 15:30 04/03/25 15:29 Potassium Chloride (KCl 10% Elixir 20meq/15ml) 20 meq AD PRN PO POTASSIUM PROTOCOL 03/04/25 15:30 04/03/25 15:29 DIAGNOSTICS / RADIOLOGY: [ ] ASSESSMENT: 54-year-old male with a history of hypertension, type 2 diabetes mellitus, obesity (BMI 42.8), and nonobstructive coronary artery disease (per 2015 [facility]/angiogram), admitted for evaluation of chest pain. He has undergone serial troponins (all negative), ECG (sinus rhythm, poor R-wave progression anteriorly, possible Q waves inferiorly), and is currently undergoing Lexiscan Cardiolite stress testing and awaiting 2D echocardiogram results. He remains hemodynamically stable and free of recurrent symptoms. Labs notable for suboptimal glycemic control (A1c 7.2%), otherwise unremarkable. No evidence of acute myocardial ischemia to date. Problem List: Chest pain, rule out ACS Nonobstructive coronary artery disease (history of 2014 [facility]/angiogram) Hypertension Type 2 diabetes mellitus, suboptimal control Obesity (BMI 42.8) History of gastric surgery PLAN: 1. Chest Pain/ACS Rule Out: - Continue cardiac monitoring and telemetry. - Await results of Lexiscan Cardiolite stress test and 2D echocardiogram. - Continue aspirin 81 mg daily and atorvastatin 20 mg qhs as initiated. - Monitor for recurrent symptoms; reassess if new chest pain or instability develops. - Cardiology to follow and guide further management based on stress test/echo results. 2. Nonobstructive CAD: - Continue secondary prevention measures (aspirin, statin). - Reinforce lifestyle modifications (diet, exercise as tolerated, weight management). 3. Hypertension: - Continue current antihypertensive regimen (losartan). - Monitor blood pressure closely; titrate therapy as needed for goal BP <130/80 mmHg. 4. Type 2 Diabetes Mellitus: - Continue metformin. - Monitor blood glucose; consider endocrinology input if further optimization needed. - Reinforce diabetic diet and lifestyle modifications. 5. Obesity: - Ship Surveyor on weight reduction strategies. - Consider automobile seat cover installer referral for dietary counseling. 6. History of Gastric Surgery: - Monitor for nutritional deficiencies (labs pending/available). - Ensure appropriate supplementation as indicated. 7. Other: - Continue to monitor labs and vital signs. - Medication reconciliation once home medication list is available. Case discussed with Dr. Carmen, above plan was formulated ATTESTATION BY PHYSICIAN I have seen and examined the patient. I reviewed the documentation, medical decision making, and treatment plan as noted by the mid-level provider above. I agree with the findings and plan of care. PATRICE CARMEN MD, JANICE [facility] Mar 05, 2025 15:58
--- NOTE | 2025-03-05 23:19 | HMCSR ---
APPROVED REPORT TEST INDICATIONS Chest Pain The imaging protocol used to acquire images was Rest Tc-99m/stress Tc-99m 1 day Consent: The procedure was explained and understood by the patient. Informerd consent was witnessed by PAULINO Helms First, low dose rest was performed then high dose stress. RESTING DATA: The resting ekg shows: NSR Rest SPECT myocardial perfusion imaging was performed in supine position minutes following the intravenous injection of 11 mCi of Tc-99m Tetrofosmin. Time of rest injection: 1020 Date: 03/05/2025 PHARMACOLOGIC STRESS: Pharmacologic stress test was performed by injecting regadenoson 0.4 mg IV push followed by the intravenous injection of 29 mCi of Tc-99m Tetrofosmin. Time of stress injection: 1200 Date: 03/05/2025 Heart Rate at time of stress injection: 90 bpm. The images were gated to evaluate regional wall motion and calculate left ventricular ejection fraction. STRESS DETAILS Reason for Termination: Infusion complete Stress Symptoms: Dyspnea Max HR Achieved: 92 bpm % of APMHR Achieved: 65 Max Blood Pressure: 140/71 mmHg Stress ECG: NSR Arrhythmia: No. ST Change: No. Study quality was fair. Artifact: soft tissue attenuation artifact, motion artifact LEFT VENTRICLE Size: The left ventricular size is normal. Systolic Function:The left ventricular systolic function is normal. Wall Motion: No regional wall motion abnormalities noted. The left ventricular ejection fraction was calculated to be >70%.TID = . LV PERFUSION The rest and stress images show normal perfusion. No reversible ischemia or areas of infarct were seen. No obvious TID. RV Size/Shape The right ventricle was not well-visualized. IMPRESSION Stress ECG Summary: Nondiagnostic Conclusion Normal Lexiscan stress test The rest and stress images show normal perfusion. No reversible ischemia or areas of infarct were seen. No obvious TID. The left ventricular size is normal. No regional wall motion abnormalities noted. The left ventricular systolic function is normal. Post-stress LVEF was calculated to be > 70%. Stress ECG Summary: Nondiagnostic Study indicates a low risk for cardiovascular events.
[2025-03-06] VITALS: BP 119/77; PULSE 80; RESP 20; TEMP 98
[2025-03-06 03:46] VITALS: BP 111/77; PULSE 60; RESP 20; TEMP 98
[2025-03-06 04:23] LABS: NUCLEATED RED BLOOD CELLS 0.0 % (0.0-0.19); PLATELET COUNT (AUTO) 214 K/uL (130-400); RED BLOOD CELL COUNT(AUTO) 4.80 MIL/uL (4.50-6.20); RED CELL DISTRIBUTION WIDTH 14.1 % (11.0-15.5); WHITE BLOOD COUNT (AUTO) 5.2 K/uL (4.8-10.8)
[2025-03-06 04:43] LABS: ASPARTATE AMINOTRANSFERASE 13.0 U/L (10-37); CREATININE 0.8 mg/dL (0.5-1.3); GLOMERULAR FILTR. RATE CALC 106.0 mL/min (>90); GLUCOSE,RANDOM 120.0 mg/dL (70-105); SODIUM SERUM 138.0 mmol/L (136-145); TOTAL PROTEIN, SERUM 6.9 g/dL (6.0-8.3); UREA NITROGEN, BLOOD 14.0 mg/dL (7-18)
[2025-03-06 08:00] VITALS: O2SAT 95
[2025-03-06 08:07] VITALS: BP 130/87; PULSE 60; RESP 16; TEMP 98.1
[2025-03-06 12:10] VITALS: BP 135/96; PULSE 71; RESP 16; TEMP 97.8
--- NOTE | 2025-03-06 13:07 | DS ---
Discharge Summary Hospital Course Summary: DATE OF ADMISSION: 03/04/2025] DATE OF DISCHARGE:[03/06/2025] DISPOSITION:[] Home CONDITION:[Medically stable] CONSULTANTS:[Milk House Worker] FOLLOW UP APPOINTMENTS:[] PCP 2 to 3 days. Milk House Worker within two weeks PROCEDURES:[Lexiscan 03/05/2025] IMAGING: report attached to summary MICROBIOLOGY: report attached to summary ACTIVITY:[Independent] HOME MEDICATIONS: see [facility] NEW MEDICATIONS:[Aspirin, atorvastatin, pantoprazole] EMERGENCY INSTRUCTIONS: The patient was instructed to present to the nearest Emergency departmentr or call 911 once their symptoms will return or worsen Hand Bender(s): Patient is 54 years old male who came to emergency department with a complaint of episode of chest pain while he was shopping in [place]. Chest x-ray was performed was negative. Milk House Worker was consulted and Lexiscan was performed which showed more than 70% EF fraction normal function. 2D echo was performed and was read by the analyzer sales as well. Today patient feels much better and is denying any chest pain shortness of breaths or any other discomfort. Nurse practitioner reach out to analyzer sales Dr. Aguiar, who cleared patient to be discharged home and follow-up outpatient in two weeks. Patient also to follow up with the PCP in 2 to 3 days. Procedure(s): REVIEW OF SYSTEMS CONSTITUTIONAL: Denies fevers, chills, or night sweats. No unintentional weight loss reported. NEUROLOGICAL: Denies headache, amaurosis fugax, motor weakness, sensory deficit, vertigo/spinning sensation, gait abnormalities, or tremors. ENT: No hearing loss, otalgia, otorrhea, rhinitis, rhinorrhea, hoarseness, or sore throat. CARDIOVASCULAR: Denies any chest pain. Denied any orthopnea, PND. PULMONARY: Denies any shortness of breath, cough, phlegm/sputum, hemoptysis, pleuritic chest pain. GASTROINTESTINAL: Denies any type of dysphagia to either liquids or solids. Denies nausea, vomiting, pyrosis, early satiety, abdominal pain, diarrhea, constipation, or changes in stool consistency or caliber. Denies coffee-ground emesis, hematemesis, hematochezia, or melanotic stools. GENITOURINARY: Denies frequency, urgency, nocturia, hematuria or incontinence (Storage/Irritative symptoms.) Low urinary stream, straining to void, urinary intermittency or hesitancy, splitting of the voiding stream, terminal dribbling. ENDOCRINOLOGIC: Denies polyuria, polydipsia, polyphagia or heat/cold intolerances. HEMATOLOGIC: Denies thrombophilia/previous clots, or coagulopathy/bleeding disorders. ONCOLOGIC: Denies personal history of malignancy. DERMATOLOGIC: Denies rashes or pruritus. PSYCHIATRIC: Denies any suicidal or homicidal ideation. Denies hallucinations. PHYSICAL EXAM GENERAL APPEARANCE: The patient is awake, alert, and oriented, in no acute cardiopulmonary distress. NEUROLOGICAL: Cranial nerves II-XII grossly intact. Motor is 5/5 in bilateral upper and lower extremities proximal to distal. No sensory deficits. HEENT: Face is symmetric. Pupils are equal and reactive. Extraocular movements are intact. NECK: Supple. No JVD. No thyromegaly. No submental, submandibular, pre- /postauricular, occipital or supraclavicular lymphadenopathy. CHEST: Normal chest expansion. No Telemetry. LUNGS: Absence of any rales, rhonchi or any wheezing. CARDIOVASCULAR: Regular. S1 and S2 normal. No appreciable rubs, murmurs or gallops. ABDOMEN: Soft, nontender, and nondistended. There is no rebound, voluntary guarding, or rigidity. : Deferred. No Medley. EXTREMITIES: Non-edematous and not cyanotic. No clubbing. Good capillary refill. SKIN: No skin breakdown. Assessment/Plan: Problem List: Chest pain, rule out ACS Nonobstructive coronary artery disease (history of 2014 [facility]/angiogram) Hypertension Type 2 diabetes mellitus, suboptimal control Obesity (BMI 42.8) History of gastric surgery Home Medications: Reported Medications Losartan/Hydrochlorothiazide (Losartan-Hctz 50-12.5 mg Tab) 50 Mg-12.5 Mg Tablet, 1 TAB PO DAILY for 30 Days, #30 TAB 0 Refills 03/04/25 Metformin HCl (Metformin HCl) 500 Mg Tablet, 1 TAB PO BID for 30 Days, #60 TAB 0 Refills 03/04/25 Discontinued Reported Medications Valsartan (Diovan) 320 Mg Tablet, 320 MG PO DAILY, TAB 02/19/15 Sitagliptin Phos/Metformin HCl (Janumet 50-1,000 mg Tablet) 1 Each Tablet, 1 EACH PO BID, TAB 02/19/15 Time spent arranging discharge: 31-60 minutes ATTESTATION BY PHYSICIAN I have seen and examined the patient. I reviewed the documentation, medical decision making, and treatment plan as noted by the mid-level provider above. I agree with the findings and plan of care. CHIDI MALAVE MD, KATARZYNA B [facility] Mar 06, 2025 13:07
--- NOTE | 2025-03-06 13:27 | PN ---
Cardiology progress note Date of service: 03/06/2025 Business Systems Administrator: Carlie Aguiar MD Problem list: Chest pain HTN DM II Gastritis/GERD Subjective: This is a 54-year-old male who was seen and evaluated at the bedside. The patient denies any recurrent episodes of chest pain, chest pain, palpitations, or shortness of breath. As per the nurse there were no overnight events. Vitals/Labs Vital Signs Date Time Temp Pulse Resp B/P (MAP) Pulse Ox O2 Delivery O2 Flow Rate FiO2 03/06/25 12:10 97.9 71 16 135/96 96 Room Air 21 03/05/25 19:20 0 General: Within alert x3. No acute distress. HEENT: Normocephalic, atraumatic. Extraocular movements are intact. Neck: No masses, JVD, or carotid bruits noted. Lungs: No respiratory distress. Symmetric chest movement. Bilaterally clear to auscultation. No wheezing, rales, or rhonchi. Cardiac: Regular rate. Normal S1 and S2. Positive S4. No rubs or gallops were identified. Abdomen: Soft, nontender, nondistended. No organomegaly. Normoactive bowel sounds x4 quadrants. Extremities: No edema, clubbing, or cyanosis. Varicose vein seen in the bilateral lower extremities. Plus two pulses noted throughout. Neuro: Cranial nerves 2-12 are grossly intact. No obvious focal deficits noted. Laboratory Tests 03/06/25 04:12 Lexiscan stress test 03/05/2025: Normal Lexiscan stress test The rest and stress images show normal perfusion. No reversible ischemia or areas of infarct were seen. No obvious TID. The left ventricular size is normal. No regional wall motion abnormalities noted. The left ventricular systolic function is normal. Post-stress LVEF was calculated to be > 70%. Stress ECG Summary: Nondiagnostic Study indicates a low risk for cardiovascular events. Assessment: Chest pain HTN DM II Gastritis/GERD Plan: 1. Chest pain -Resolved -ECG 03/04/2025: Sinus rhythm. Poor R-wave progression seen in the anterior leads. Possible Q-wave seen in the inferior leads. Heart rate descending beats per minute. -laboratory data- high sensitivity troponin I: 6 > 6 -Lexiscan stress test 03/05/2025: Normal study. Rest and stress images demonstrate normal perfusion. No reversible ischemia or areas of infarct were seen. -The patient denies any recurrent episodes of chest pain, chest pressure, palpitations, or shortness of breath. -After reviewing the above-mentioned findings, the patient's symptoms appear to be noncardiac in origin and related to underlying GERD/gastritis. In light of this finding we do not recommend any further cardiac workup or treatment. 2. HTN -continue losartan/HCTZ 3. Gastritis/GERD -in order to address this issue we recommend starting the patient on pantoprazole 20 mg daily. The medication should be taken 30 minutes before the 1st meal of the day. The importance of following these instructions were stress of the patient. He voiced understanding. We will be signing off the case, but if there are any further questions or concerns please feel free to re-consult us. Please tell the patient follow up with Dr. Aguiar in 1-2 weeks. Medications Current Medications Aspirin 325 mg ONCE ONCE PO Last administered on 03/04/25at 13:51; Start 03/04/25 at 14:00; Stop 03/04/25 at 14:01; Status DC Famotidine 20 mg BID IV Last administered on 03/06/25at 10:20; Start 03/04/25 at 21:00; Stop 04/03/25 at 20:59 Enoxaparin Sodium 40 mg DAILY SQ Last administered on 03/06/25at 10:20; Start 03/05/25 at 09:00; Stop 04/04/25 at 08:59 Acetaminophen 500 mg Q6H PRN PO; Start 03/04/25 at 15:30; Stop 04/03/25 at 15:29 Aspirin 81 mg DAILY PO Last administered on 03/06/25at 10:20; Start 03/05/25 at 09:00; Stop 04/04/25 at 08:59 Insulin Human Regular INSULIN SLIDING SCAL... ACHS SQ Last administered on 03/04/25at 21:19; Start 03/04/25 at 16:30; Stop 04/03/25 at 16:29 Potassium Chloride 100 ml @ 100 mls/hr AD PRN IV; Start 03/04/25 at 15:30; Stop 04/03/25 at 15:29 Potassium Chloride 20 meq AD PRN PO; Start 03/04/25 at 15:30; Stop 04/03/25 at 15:29 Potassium Chloride 20 meq AD PRN PO; Start 03/04/25 at 15:30; Stop 04/03/25 at 15:29 Magnesium Sulfate 50 ml @ 0 mls/hr PROTOCOL PRN IV; Start 03/04/25 at 15:30; Stop 04/03/25 at 15:29 Hydralazine HCl 10 mg Q6H PRN IV; Start 03/04/25 at 15:30; Stop 04/03/25 at 15:29 HCTZ/Losartan Potassium 1 tab DAILY PO Last administered on 03/06/25at 10:19; Start 03/05/25 at 09:00; Stop 04/04/25 at 08:59 Atorvastatin Calcium 20 mg HS PO Last administered on 03/05/25at 20:28; Start 03/05/25 at 21:00; Stop 04/04/25 at 20:59 Regadenoson 0.4 mg STK-MED ONCE IVP Last administered on 03/05/25at 11:55; Start 03/05/25 at 11:53; Stop 03/05/25 at 11:53; Status CARLIE SEBASTIAN MD Mar 06, 2025 13:26
--- NOTE | 2025-03-06 23:25 | HMCSR ---
APPROVED REPORT EXAM: Two-dimensional and M-mode echocardiogram with Doppler and color Doppler. INDICATION ICD: Chest Pain 2D Dimensions RVDd 3.9 cm LVEF(%) 73.9 (>50%) LVED Vol(simp.) 148.0 mL IVSd 1.3 (0.7-1.1cm) FS(%) 43 % LVES Vol(simp.) 65.0 mL LVDd 4.4 (3.8-5.6cm) LA (2D) 4.4 (1.6-4.0cm) LVEF(%, simp.) 56 % PWd 1.3 (0.7-1.1cm) Ao Root(2D) 3.6 (2.0-3.7cm) LA ESV INDEX (BP) 31.93 mL/m2 LVDs 2.5 (2.5-4.0cm) LVOT diam 2.5 (1.8-2.4cm) IVC diam 1.5 cm Deformation Strain Apical 4 -18.4 % Apical 2 -17.8 % Apical 3 -18.8 % Global Strain -18.4 % M-Mode Dimensions EPSS 0.5 cm LA (MM) 3.8 (1.6-4.0cm) Ao Root(MM) 3.5 (2.0-3.7cm) Aortic Valve AoV Vmax 1.1 m/s Ao Peak GR 4.6 mmHg LVOT Vmax 0.9 m/s AoV VTI 0.3 m Ao Mean GR 2.8 mmHg LVOT VTI 0.23 m RAYA (VMAX) 4.32 cm2 RAYA (VTI) 4.3 cm2 Mitral Valve MV E Vmax 96.8 cm/s DECEL Time 154 ms MV A Vmax 61.0 cm/s P 1/2 T 47 ms E/A ratio 1.6 MVA (PHT) 4.6 cm2 TDI E/E' Medial 8.7 E/E' Lateral 9.5 Medial E' Peak V 11.12 cm/s Lateral E' Peak V 10.17 cm/s Left Ventricle The left ventricle is normal size. No regional wall motion abnormalities noted. Mild concentric left ventricular hypertrophy. Left ventricular systolic function is normal, estimated LVEF is 55 to 60%. The left ventricular diastolic function is normal. Right Ventricle The right ventricle is normal size. The right ventricular systolic function is normal. Atria The left atrium size is normal. The right atrium size is normal. Aortic Valve Aortic valve is trileaflet. No aortic regurgitation is present. There is no aortic valvular stenosis. Mitral Valve The mitral valve is normal in structure. There is no mitral valve regurgitation noted. There is no mitral valve stenosis. Tricuspid Valve The tricuspid valve is normal in structure. Trace tricuspid regurgitation. RVSP is normal. Pulmonic Valve Pulmonic valve is not well visualized. Great Vessels The aortic root is normal in size. The IVC is normal in size and collapses >50% with inspiration. Pericardium There is no pericardial effusion. Conclusion The cardiac chambers are normal in size. Mild concentric left ventricular hypertrophy. No regional wall motion abnormalities noted. Left ventricular systolic function is normal, estimated LVEF is 55 to 60%. The left ventricular diastolic function is normal. Trace tricuspid regurgitation. PASP is normal. There is no pericardial effusion.
== END 2025-03-06 14:30 | disposition home or self-care (01) | DRG 206 ==
LOC: EDH 13:07 → EDHIP 15:13 → 4DH 16:35
PROVIDERS: ADMIT Internal Medicine; ATTEND Internal Medicine
PROC: 4A02XM4 Measurement of Cardiac Total Activity, External Approach (ICD-10-PCS; principal; 2025-03-05)
PROC: 3E073KZ Introduction of Other Diagnostic Substance into Coronary Artery, Percutaneous Approach (ICD-10-PCS; 2025-03-05)
DX: M94.0 Chondrocostal junction syndrome [Tietze] (principal); E11.65 Type 2 diabetes mellitus with hyperglycemia; E66.9 Obesity, unspecified; I10 Essential (primary) hypertension; Z68.41 Body mass index [BMI] 40.0-44.9, adult; I25.10 Atherosclerotic heart disease of native coronary artery without angina pectoris; K21.9 Gastro-esophageal reflux disease without esophagitis; K29.70 Gastritis, unspecified, without bleeding; Z82.3 Family history of stroke; Z83.3 Family history of diabetes mellitus; Z82.49 Family history of ischemic heart disease and other diseases of the circulatory system
CPT/HCPCS: 36415; 71045; 78452; 80048; 80053; 81003; 82607; 82948; 83036; 83735; 84443; 84484; 85025; 85027; 93005; 93017; 93306; 93356; 99285; A9500; G0378; J1650; J1815; J2785; J1308